=== PATIENT | female | born 1950 | race Caucasian/White ===

== ENCOUNTER 2025-04-19 07:29 | Day surgery (SDC) | payer OTHER ==
[2025-04-19 08:27] LABS: Absolute Lymphocytes (CBC) 1.2 K/uL (0.7-4.9); Hematocrit 44.1 % (36.0-45.0); Hemoglobin 14.7 g/dL (12.0-15.0); MCH 30.3 pg (27.0-35.0); MCHC 33.3 g/dL (32.0-36.0); MCV 91.0 fL (80-100); MPV 7.9 fL (7.6-11.3); Nucleated RBC Absolute Count 0.0 (0-0); Nucleated Red Blood Cells % 0.0 % (0-0); RBC Red Blood Cell Count 4.84 M/uL (3.86-4.86); White Blood Count 5.10 thou/uL (4.3-10.9)
[2025-04-19] MEDS: DIAZEPAM 5 MG TABLET ONE (08:30)
[2025-04-19 08:36] LABS: PT Prothrombin Time 11.3 SECONDS (10-13.0); PTT, Activated Partial Thromb 29.1 SECONDS (27.2-37.4); Protime INR 1.0
[2025-04-19 08:46] LABS: ALT/SGPT 22 U/L (13-56); AST/SGOT 19 U/L (15-37); Albumin 3.6 g/dL (3.4-5.0); Albumin/Globulin Ratio 1.1 (1.1-1.8); Alkaline Phosphatase 63 U/L (45-117); Anion Gap 8.6 mEq/L (5.0-15.0); BUN Blood Urea Nitrogen 11 mg/dL (7-18); Bilirubin Indirect, Calculated 0.2 mg/dL (0.2-0.8); Globulin 3.4 g/dL (2.3-3.5); Glucose Level 99 mg/dL (74-106); Potassium 3.6 mEq/L (3.5-5.1)
[2025-04-19 14:18] LABS: Fluid Total Volume 11 ml
[2025-04-19 14:19] LABS: Color of Supernate Not Xanthochromic (Not Xantho); Color of fluid Colorless (COLORLESS)
[2025-04-19 14:28] VITALS: TEMP 98; BMI 21.4
[2025-04-19 14:29] VITALS: BP 110/79; O2SAT 99
--- NOTE | 2025-04-20 10:33 | RAD REPORT ---
Procedure: LUMBAR SPINE PUNCTURE FLURO/CT Preprocedure and procedure diagnosis: IDIOPATHIC Anesthesia: 8 mL of buffered 1% lidocaine Specimen: 11.5 mL of CSF. See below regarding requested high-volume LP. Exposure: 0:4 minutes; 16.51 mcg/sq m TECHNIQUE: Prior to the procedure, the risks and benefits of a lumbar puncture were explained to the patient who consented fully to the procedure. [employer] radiographs were performed. A radiopaque object was used to barron the site of best entry into the lumbar canal on the skin. This a magda was then prepped and draped in the usual sterile fashion. Lidocaine was used to anesthetize the skin. A 22-gauge spinal needle was then placed using fluoroscop ic guidance into the central canal of the lumbar spine. Access was obtained at L1-2. CSF was able to be obtained. A total of 11.5 mL was obtained and sent to the lab. Additional 3 mL was removed and discarded. Despite repositioning the needle and the patient and confirming proper placement with very gentle suction applied with a syringe, the CSF flow was extremely slow. Ultimatel y, the patient was unable to maintain position and the procedure was discontinued at that time. In total, 14.5 mL was removed. No immediate post procedure complication.
== END 2025-04-19 13:10 | disposition home or self-care (01) ==
LOC: RAD 07:29 → DS 13:10
PROVIDERS: ATTEND Psychiatry & Neurology Neurology with Special Qualifications in Child Neurology
DX: G91.2 (Idiopathic) normal pressure hydrocephalus (principal); R55 Syncope and collapse; M54.81 Occipital neuralgia
CPT/HCPCS: 36415; 62328; 80048; 80076; 82945; 84157; 85025; 85610; 85730; 89050